=== PATIENT | female | born 1970 | race Caucasian/White ===

== ENCOUNTER → 2016-09-18 | Outpatient (CLI) | payer OTHER ==
[~2016-09-18] MED LIST: BENTYL10 MG PO; LEXAPRO PO; LORTAB 7.5-3251 EACH PO
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
== END | disposition home or self-care (01) ==
LOC: CMRI 17:15
DX: M50.30 Other cervical disc degeneration, unspecified cervical region (principal); Z98.1 Arthrodesis status
CPT/HCPCS: 72141